=== PATIENT | female | born 1985 | race Caucasian/White ===

== ENCOUNTER 2022-08-28 12:27 | Outpatient (CLI) | payer BC, SELFPAY | END 2022-08-28 12:28 | disposition home or self-care (01) | PROVIDERS: PCP Internal Medicine; Visit Provider Physician Assistant | DX: A49.9 Bacterial infection, unspecified (principal); N39.0 Urinary tract infection, site not specified | CPT/HCPCS: 87086 ==

== ENCOUNTER 2022-08-29 16:01 | Outpatient (CLI) | payer BC, SELFPAY ==
--- NOTE | 2022-08-29 16:00 | CRLHL7_ITS ---
For Patients: As a result of the Century Cures Act, medical imaging exams and procedure reports are released immediately into your electronic medical record. You may view this report before your referring provider. If you have questions, please contact your health care provider. INDICATION: PELVIC PRESSURE, S/P ABLATION COMPARISON: 11/01/2020 TECHNIQUE: 2D cantu scale and color Doppler images were acquired of the pelvis using a transabdominal and transvaginal approach. FINDINGS: Sonographic images demonstrate a normal size and smooth outer contour of the uterus. Uterus measures 6.0 cm in length by 3.9 cm in AP diameter by 4.5 cm in transverse dimension. The myometrium has a heterogeneous echotexture. The endometrial lining measures 7 mm in composite thickness. The right ovary measures 2.8 x 1.9 x 2.2 cm in size and the left ovary measures 2.6 x 1.9 x 2.0 cm. The ovaries demonstrate normal arterial and venous blood flow on color Doppler analysis. Moderate pelvic free fluid. IMPRESSION: Moderate pelvic free fluid. Post endometrial ablation changes. No endometrial fluid. Dictated by Leonard Hinojosa MD @ 08/31/2022 10:36:30 AM (Electronically Signed)
== END 2022-08-29 16:02 | disposition home or self-care (01) ==
LOC: US 16:02
PROVIDERS: PCP Internal Medicine; Visit Provider Physician Assistant
DX: R10.2 Pelvic and perineal pain (principal)
CPT/HCPCS: 76830; 76856

== ENCOUNTER 2022-12-27 13:54 | Outpatient (CLI) | payer BC, SELFPAY | END 2022-12-27 13:55 | disposition home or self-care (01) | LOC: NFLDREF 12-28 16:04 | PROVIDERS: PCP Internal Medicine; Referring Provider Internal Medicine; Visit Provider Physician Assistant | DX: R39.15 Urgency of urination (principal) | CPT/HCPCS: 87086 ==

== ENCOUNTER 2024-07-23 09:09 | Outpatient (CLI) | payer BC, SELFPAY ==
--- OUTSIDE RECORDS SUMMARY | 2024-07-23 09:12 | XMS_ITS | Clinical Summary ---
Author Organization [facility] Address [address] [place] [address] Care Team Providers Care Musician Instrumental Name Role Phone Josué Orlando MD Primary Care Provider [phone] Social History Tobacco Use Types Packs/Day Years Used Date Smoking Tobacco: Never Assessed Adolescent Education Answer Date Record ed Getting School Help Needed Not on file 06/15 Comments Unknown Sex and Gender Information Value Date Recorded Sex Assigned at Not on file Legal Sex Female 11:44 AM CDT Gender Identity Not on file Sexual Orientation Not on file Plan of Treatment Health Maintenance Due Date Last Done Comments ADVANCE CARE PLANNING 1983 ANNUAL REVIEW OF HM ORDERS 1983 GLUCOSE 1983 MAMMO SCREENING 1983 YEARLY PREVENTIVE VISIT 1983 HIV SCREENING 1998 HEPATITIS C SCREENING 2001 HEPATITIS B IMMUNIZATION (1 of 3 - 19+ 3-dose series) 2002 PAP 2004 DTAP/TDAP/TD IMMUNIZATION (3 - Td or Tdap) 07/12/2021 07/12/2011, 08/19/1996 LIPID 2023 PHQ-2 (once per calendar year) 2023 COVID-19 Vaccine (2 - 2023-2 5 season) 2024 02/11/2021 INFLUENZA VACCINE (#1) 2024 07/13/2008 RSV VACCINE (1 - 1-dose 75+ series) 2058 HPV IMMUNIZATION Aged Out No longer e ligible based on patient's age to complete this topic MENINGITIS IMMUNIZATION Aged Out No l onger eligible based on patient's age to complete this topic Pneumococcal Vaccine: Pediatrics (0 to 5 Years) and At-Risk Patients (6 to 64 Years) Aged Out No longer eligible b ased on patient's age to complete this topic RSV MONOCLONAL ANTIBODY Aged Out No l onger eligible based on patient's age to complete this topic Care Teams Musician Instrumental Relationship Specialty Start Date End Date Josué Orlando MD [facility] [address] [address] [place] [address] PCP - General Gastroenterology 07/12/22
--- OUTSIDE RECORDS SUMMARY | 2024-07-23 09:12 | XMS_ITS | Clinical Summary ---
Author Organization [facility] Address [place], [place] [address] Care Team Providers Care Archery Instructor Name Role Phone Sylvia Mejía MD Unavailable Pcp, No Primary Care Provider Unavailabl e Allergies No known active allergies Medications Medication Sig Dispensed Refills Start Date End Date Status nortriptyline (PAMELOR) 10 mg capsule Take 10 mg by mouth at bedtime. 05/25/2021 Active FLUoxetine (PROZAC) 20 mg capsuleIndications:E pisode of recurrent major depressive disorder, unspecified depression episode severity (HC),Generalized anxiety disorder Take 3 Capsules (60 mg) by mouth every morning. 90 Capsule 3 06/22/2021 Active colestipoL (COLESTID) 1 gram tablet 04/13/2023 Active tiZANidine (ZANAFLEX) 4 mg tabletIndications:Wh iplash injury to neck, initial encounter Take 1 Tablet (4 mg) by mouth every 8 hours if needed for Muscle Spasm. 24 Tablet 1 08/07/2023 Active celecoxib (CELEBREX) 200 mg capsuleIndications:W hiplash injury to neck, initial encounter Take 1 Capsule (200 mg) by mouth two times daily with meals. 36 Capsule 1 08/07/2023 Active benzonatate (Tessalon Perles) 100 mg capsuleIndications:A cute cough Take 1-2 Capsules (100-200 mg) by mouth 3 times daily if needed for Cough. 50 Capsule 1 11/20/2023 Active albuterol HFA (ProAir HFA) 90 mcg/actuation inhalerIndications:C ough, unspecified type,Chest pain, pleuritic Inhale 1-2 Puffs by mouth every 6 hours if needed for Shortness of Breath 1st choice. 1 Each 12/26/2023 Active traMADoL (ULTRAM) 50 mg tabletIndications:Ri b pain on right side Take 1 Tablet (50 mg) by mouth four times daily. 10 Tablet 12/26/2023 Active Active Problems Problem Noted Date Diagnosed Date Stress incontinence in female 06/22/2021 Hypertriglyceridemia 08/06/2019 PAWAN III (cervical intraepithelial neoplasia III) 02/02/2014 Overview (02/02/2014): LEEP 08/2011 Pap 11/2012 NIL Major depressive disorder, recurrent episode, mo derate 10/13/2013 Generalized anxiety disorder 10/13/2013 Iron deficiency anemia, unspecified 03/01/2011 LGSIL (low grade squamous intraepithelial dyspla temo) 11/13/2010 Abnormal granulation tissue 11/03/2008 Overview (11/03/2008): Vaginal Major depressive disorder, recurrent episode, un specified 01/13/2008 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 Irritable bowel syndrome 12/25/2007 Other acne 01/13/2007 Resolved Problems Problem Noted Date Diagnosed Date Resolved Date Supervision of other normal 04/12/2011 07/12/2011 Dysthymic disorder 01/13/2007 8 Immunizations Name Administration Dates Next Due Influenza, IIV3 (Age >=3 years) 07/13/2008 MMR 08/19/1996 Td (Age >=7 Years) 08/19/1996 Tdap 07/12/2011 Family History Medical History Relation Name Comments Allergies Father Arthritis Father Hyperlipidemia Father Hypertension Father Other Maternal Grandmother dvt Allergies Mother Arthritis Mother Other Mother dvt Allergies Other 1 sibling,depress ion,suicide Arthritis Other 2 grandparent Asthma Other 3 grandparent Diabetes Other 4 grandparent Hypertension Other 5 grandparent Stroke Other 6 grandparent, mi graine Alcohol/Drug Other 7 grandparent Relation Name Status Comments Father Maternal Grandmother Mother Other 1 Other 2 Other 3 Other 4 Other 5 Other 6 Other 7 Social History Tobacco Use Types Packs/Day Years Used Date Smoking Tobacco: Never Smokeless Tobacco: Never Tobacco Cessation:Counseling Given: Yes Alcohol Use Standard Drinks/Week Comments Yes 0 (1 standard drink = 0.6 oz pur e alcohol) occasional PHQ-2 Answer Date Recorded PHQ-2 TOTAL SCORE 4 11/20/2023 Social Connections Answer Date Recorded Frequency of Communication with Friends and Fami ly Not on file 08/07/2023 Financial Resource Strain Answer Date R ecorded Difficulty of Paying Living Expenses Not on file 09/23/2021 Difficulty of Paying Living Expenses Not on file 09/23/2021 Sex and Gender Information Value Date Recorded Sex Assigned at Not on file Gender Identity Not on file Sexual Orientation Not on file Obstetrics History Para Term AB IAB SAB Ectopic Multiple Livin g Live Births 3 2 2 1 1 2 Date Outcome GA Total Labor Labor/2nd/3rd Weight Sex Type Anes PTL Carla A1 A5 Name Clin SAB 008 Term 41w 3d 11h 00m/ 4.22 kg (9 lb 5 oz) F Zeinab johansen Hanh Delivery Location:[facility] Comments:PP Hemorrhage and Kidney stones 011 Term 39w 5d 7h 00m/ 4.54 kg (10 lb) F Zeinab johansen 8 9 Comments:hgb post 9.2 Last Filed Vital Signs Vital Sign Reading Time Taken Comments Blood Pressure 120/83 12/26/2023 9:01 AM CDT Pulse 85 12/26/2023 9:01 AM CDT Temperature 36.7 ??C (98.1 ??F) 12/26/2023 9:01 AM CD T Respiratory Rate 16 10/29/2020 3:04 PM SEED DISTRICT SALES MANAGER Oxygen Saturation 98% 12/26/2023 9:01 AM CDT Inhaled Oxygen Concentration - - Weight 84.8 kg (187 lb) 12/26/2023 9:01 AM CDT Height 162.5 cm (5' 3.98) 06/22/2021 11:11 AM C DT Body Mass Index 32.12 06/22/2021 11:11 AM CDT Plan of Treatment Health Maintenance Due Date Last Done Comments Hepatitis C screening for age 18-79 2001 Tetanus booster 07/12/2021 07/12/2011, 01/22 (Declined), 08/19/1996 Pap test for age 21-65 04/23/2022 9, 04/23/2019, 06/14/2017, Additional history exists BMI (ht and wt on same day) for age 18+ 06/22/2022 06/22/2021, 08/06/2019, 04/09/2018, Additional history exists COVID-19 vaccine series ( season) 2024 02/11/2021 Influenza for age 9-49 05/24/2024 07/13/2008 Depression screening for age 12+ 11/20/2024 11/20/2023, 08/06/2019, 01/21/2018, Additional history exists HIV for age 15-65 Completed 09/27/2010, 12/25/2007 Tdap Completed 07/12/2011 Pneumococcal series for age 6-64 Aged Out No longer eligible based on patient's age to complete this topic Procedures Procedure Name Priority Date/Time Associated Diagnosis Comments DUMP TRUCK DRIVER OFF HIGHWAY THIN PREP PAP SCREEN IMAGED Routine 04/23/2019 1:40 PM CDT ANTI HIV 1/2 Routine 09/27/2010 12:04 PM SEED DISTRICT SALES MANAGER Supervision of other normal from Last 3 Months or Most Recently Relevant to Health Maintenance Results * DUMP TRUCK DRIVER OFF HIGHWAY THIN PREP PAP SCREEN IMAGED (04/23/2019 1:40 PM CDT) Case Report Gynecologic Cytology Report ? Case: [id number] ? Authorizing Provider: ??Ida Romero PA-C ?Collected: ? 04/23/2019 1340 ? Ordering Location: ? [facility] ?Received: ?04/27/2019 1449 ? First Screen: ?Tanner Bee ? Specimen: ?DUMP TRUCK DRIVER OFF HIGHWAY ThinPrep Vial Screening, Cervical/Vaginal ? 05/05/2019 10:17 AM [facility] INTERPRETATION/ RESULT NEGATIVE FOR INTRAEPITHELIAL LESION OR MALIGNANCY (NIL) (none) 05/05/2019 10:17 AM [facility] IMEN ADEQUACY Satisfactory for evaluation Endocervical component present 05/05/2019 10:17 AM [facility] HPV REQUEST HPV and PAP 05/05/2019 10:17 AM [facility] Date of LMP 05/05/2019 10:17 AM [facility] Comment:Ablation Last Pap Date 06/14/2017 05/05/2019 10:17 AM CDT [facility] Last Pap Result NIL 9 10:17 AM [facility] Comment:neg hpv Menstrual Status Ablation 05/05/2019 10:17 AM [facility] Automated Review Successful 05/05/2019 10:17 AM [facility] Comment:Specimen processed s uccessfully by automated anesthesiology teacher device, ThinPrep Imaging System, [employer] ANCILLARY TESTING DUMP TRUCK DRIVER OFF HIGHW[address] HPV Ordered, Please see separate report 05/05/2019 10:17 AM [facility] Note The pap test is a screening technique, not a diagnostic procedure. ??It is used primarily to screen for squamous cancers and precursor lesions. ??Published studies have shown that it is subject to both false negative and false positive results. ??The pap test should not be used as the sole means to diagnose or exclude pre-malignant and malignant lesions. Cytology is screened and interpreted at [facility] [address] [facility] [address], [place] [address] and [facility] - [address]; [place] [address] and [facility] - [address]; [place] [address] and [facility] [address]; [place], [place] [address] 05/05/2019 10:17 AM CDT [facility] Other (Cervical/Vagina l) 04/23/2019 1:40 PM CDT 04/27/2019 2:49 PM CDT December Heather BARCENAS PATHOLOGY/CYTOLOGY [facility] [address] [place] [address], * HIV (09/27/2010 12:04 PM SEED DISTRICT SALES MANAGER) ANTI HIV 1/2 Non-reacti ve [facility] Blood specimen (specimen) BLOOD SPECIMEN / Unknown 09/27/2010 12:04 PM SEED DISTRICT SALES MANAGER 09/27/2010 11:55 AM SEED DISTRICT SALES MANAGER Leola Lamb EXHIBITION CARVER SEND OUTS [facility] INTERNAL ZIP [address] [address] from Last 3 Months or Most Recently Relevant to Health Maintenance Care Teams Archery Instructor Relationship Specialty Start Date End Date Pcp, No . PCP - General 04/04/23 Sylvia Mejía MD STRIKER OFF Obstetrics and Gynecology 08/08/11
--- OUTSIDE RECORDS SUMMARY | 2024-07-23 09:12 | XMS_ITS | Referral Summary ---
Author Organization [facility] Address [address] [place] [address] Care Team Providers Care Pack Room Operator Name Role Phone Josué Orlando MD Primary Care Provider [phone] Social History Tobacco Use Types Packs/Day Years Used Date Smoking Tobacco: Never Assessed Adolescent Education Answer Date Record ed Getting School Help Needed Not on file 06/15 Comments Unknown Sex and Gender Information Value Date Recorded Sex Assigned at Not on file Legal Sex Female 11:44 AM CDT Gender Identity Not on file Sexual Orientation Not on file Plan of Treatment Not on file Care Teams Pack Room Operator Relationship Specialty Start Date End Date Josué Orlando MD [facility] [address] [address] [place] [address] PCP - General Gastroenterology 07/12/22
[2024-07-23 13:20] LABS: Chlamydia DNA Amplified* NOT DETECTED (No Detected); GC DNA Amplified* NOT DETECTED (No Detected)
[2024-07-25 06:33] LABS: HPV Source Cervix; HPV, High Risk by TMA Detected
[2024-07-27 14:46] LABS: HPV Genotype 16 by TMA Not Detected; HPV Genotype 18/45 by TMA Not Detected; HPVG Source Cervix
[2024-08-06 17:30] LABS: Pap Test Reviewed by Path Done
== END 2024-07-23 09:10 | disposition home or self-care (01) ==
PROVIDERS: PCP Internal Medicine; Visit Provider Physician Assistant
DX: N93.0 Postcoital and contact bleeding (principal); Z12.4 Encounter for screening for malignant neoplasm of cervix; Z11.3 Encounter for screening for infections with a predominantly sexual mode of transmission
CPT/HCPCS: 87491; 87591; 87624; 87625; 88141; 88142

== ENCOUNTER 2024-11-04 13:02 | Outpatient (CLI) | payer BC, SELFPAY | END 2024-11-04 13:03 | disposition home or self-care (01) | LOC: MAMMO 13:03 | PROVIDERS: PCP Internal Medicine; Visit Provider Physician Assistant | DX: Z12.31 Encounter for screening mammogram for malignant neoplasm of breast (principal); R92.333 Mammographic heterogeneous density, bilateral breasts | CPT/HCPCS: 77063; 77067 ==

== ENCOUNTER 2025-01-19 13:33 | Outpatient (CLI) | payer BC, SELFPAY | END 2025-01-19 13:34 | disposition home or self-care (01) | PROVIDERS: PCP Internal Medicine; Visit Provider Physician Assistant | DX: L65.9 Nonscarring hair loss, unspecified (principal) | CPT/HCPCS: 83001; 84443 ==

== ENCOUNTER 2025-03-08 11:49 | Outpatient (CLI) | payer BC, SELFPAY | END 2025-03-08 11:50 | disposition home or self-care (01) | LOC: NFLDREF 11:50 | PROVIDERS: PCP Internal Medicine; Visit Provider Obstetrics & Gynecology | DX: N39.0 Urinary tract infection, site not specified (principal); B96.20 Unspecified Escherichia coli [E. coli] as the cause of diseases classified elsewhere | CPT/HCPCS: 87086 ==